=== PATIENT | female | born 1945 | race Caucasian/White ===

== ENCOUNTER 2019-04-02 06:39 | Emergency (ER) | payer MEDICARE, BC, SELFPAY ==
[2019-04-02 06:44] VITALS: BP 179/98; PULSE 85; RESP 16; TEMP 36.9; O2SAT 100; BMI 23.3
--- NOTE | 2019-04-02 07:11 | ED_ITS ---
HPI - Female Genitourinary General Chief complaint: Urogenital-Female Stated complaint: possible uti Time Seen by Provider: 04/02/19 07:38 Source: patient Mode of arrival: Ambulatory Limitations: no limitations History of Present Illness HPI Narrative: This is a 74-year-old female comes in with complaint of vaginal irritation and rawness patient states she has dysuria with urination. No new frequency she states she chronically has frequency. She has not noticed any new discharge. She did try Monistat for several days with no improvement of symptoms. She has not had fevers. She has felt slightly nauseated. She has had a little bit of suprapubic discomfort. Patient states she has not any vomiting. She denies any fevers. She states that she has had a history of colitis, she states she has not been having symptoms consistent with her past colitis episodes which is usually ?screaming diarrhea.? By her description it sounds like she probably has been treated with Cipro Flagyl in the past. Related Data Previous Rx's Medication Instructions Recorded fluconazole [Diflucan] 150 mg PO Q3D #2 tab 04/02/19 Allergies Allergy/AdvReac Type Severity Reaction Status Date / Time Sulfa (Sulfonamide Allergy Severe Unverified 08/01/17 12:52 Antibiotics) [SULFA (SULFONAMIDE ANTIBIOTICS)] ciprofloxacin [CIPROFLOXACIN] Allergy Intermediate on IV site Unverified 08/01/17 12:52 lisinopril [LISINOPRIL] AdvReac Intermediate cough Unverified 08/01/17 12:52 hydrochlorothiazide AdvReac Unknown loses too Unverified 08/01/17 12:52 [HYDROCHLOROTHIAZIDE] much K+ Review of Systems Review of Systems ROS Unobtainable: All systems reviewed & are unremarkable except as noted in HPI and below Patient History tobacco type: cigarettes alcohol intake frequency: 0-2 drinks per day Substance Use Type: does not use Exam Narrative Exam Narrative: GENERAL: Alert and oriented x three, well-nourished, well- appearing female in mild distress. HEENT: Head normocephalic, atraumatic, EOMI, pupils reactive, face symmetric, moist mucous membranes NECK: Supple, full range of motion CARDIOVASCULAR: Regular rate and rhythm without murmurs, rubs or gallops. RESPIRATORY: Breath sounds equal bilaterally, no wheezes rales or rhonchi. ABDOMEN: Soft, mild suprapubic tenderness. Normoactive bowel sounds all 4 quadrants. No guarding or rebound, rigidity, no mass : No CVA tenderness Female: external vaginal exam shows dry irritated vaginal mucosa on the internal labia majora, no vaginal bleeding, no discharge, no cervical motion tenderness, patient defer speculum exam, no adnexal tenderness/mass. Bimanual exam is normal, no enlarged or tender uterus. Non-gravid. EXTREMITIES: Normal range of motion, no clubbing or edema. Neurovascularly intact NEUROLOGICAL: Cranial nerves II through XII grossly intact. Moving all extre mities SKIN: Warm, dry, no petechiae, no rashes or lesions. Initial Vital Signs Initial Vital Signs: Vital Signs Temperature 98.5 F 04/02/19 06:44 Pulse Rate 85 04/02/19 06:44 Respiratory Rate 16 04/02/19 06:44 Blood Pressure 179/98 H 04/02/19 06:44 Pulse Oximetry 100 04/02/19 06:44 Course Orders Ordered: ED Orders 04/02/19 06:52 Urine Culture Stat Urine Microscopic Stat 04/02/19 08:00 Genital Culture Stat Wet Prep Tric BV [place] Stat Vital Signs Vital signs: Vital Signs - 8 hr 04/02/19 06:44 Temperature 98.5 F Pulse Rate 85 Respiratory Rate 16 Blood Pressure 179/98 H Pulse Oximetry 100 MDM - Female Genitourinary Lab Data Labs: Lab Results 04/02/19 Range/Units 06:52 Urine RBC 0-1/hpf (0-5/HPF) Urine WBC 5-10/hpf H (0-5/HPF) Ur Squamous Epith Cells 1-5 /hpf (0-5/HPF) Urine Bacteria Few (2-10) H (None) Ur Culture Indicated? Specimen cultured Urine Dip Bedside Urine Glucose Negative Bedside Urine Bilirubin - Negative Bedside Urine Ketone - Negative Urine Specific [place] 1.015 Bedside Urine Occult Blood - Negative Bedside Urine pH 6.0 Bedside Urine Protein - Negative Bedside Urine Urobilinogen - Negative Bedside Urine Nitrite - Negative Bedside Urine Leukocytes ++ 125 Esterase MDM Narrative Medical decision making narrative: Discussed with patient she states that she has had a very longstanding history of being very sensitive in the vaginal area and I suspect she may have some atrophic vaginitis complicating her symptoms. Her urine shows leukocyte esterase but no nitrates. She has frequency regularly but has not noticed any increased. Her she does have dysuria but also has a lot of genital irritation. We discussed waiting for urine culture. On exam patient does appear to have some atrophic vaginitis. She has had a lot of itching so we discussed trying a short course of Diflucan. General culture was obtained as well as urine culture which is pending and patient would be contacted if these were positive. Discharge Plan Departure Patient Disposition: Home Clinical Impression: Vaginal irritation Discharge Date/Time: 04/02/19 08:39 Instructions: DI for Atrophic Vaginitis Activity Restrictions/Additional Instructions: Follow-up with your primary care at your scheduled appointment. I suspect he may have some atrophic vaginitis which is causing irritation chronically in the vaginal area. Some patients will use a topical estrogen cream for this. You may also use lubricating jelly if you find it helpful. I do not recommend topical soaps or lotions unless directed by her physician or a pharmacist. You may continue Monistat cream intravaginally. Take Diflucan 1 tablet today, then take the 2nd tablet on day 3. Your urine and genital culture are pending these take about 48 hours to result. If positive and requires additional treatment you should expect a phone call. Return to the ER for fevers, persistent vomiting, new or increasing abdominal pain, flank pain, new vaginal bleeding, black or bloody stools or other new or concerning symptoms. Prescriptions: New fluconazole [Diflucan] 150 mg tablet 150 mg PO Q3D Qty: 2 RF: 0
[2019-04-02 07:21] LABS: Bacteria Urine Few (2-10); Culture Indicated Urine Specimen Cultured; RBC Urine 0-1/HPF (0-5/HPF); Squamous Epithelial Cell Urine 1-5 /HPF (0-5/HPF); WBC Urine 5-10/HPF (0-5/HPF)
[2019-04-02 08:38] VITALS: PULSE 70; RESP 14; O2SAT 99
== END 2019-04-02 08:39 | disposition home or self-care (01) ==
PROVIDERS: Emergency Medicine; Emergency Provider Emergency Medicine
DX: N89.8 Other specified noninflammatory disorders of vagina (principal)
CPT/HCPCS: 81003; 81015; 87070; 87086; 87205; 87210; 99282